=== PATIENT | female | born 1930 | race Caucasian/White ===

== ENCOUNTER 2017-06-25 19:13 | Emergency (ER) | payer OTHER, BC ==
[2017-06-25 19:29] VITALS: PULSE 80; TEMP 98.8; O2SAT 93
[2017-06-25] MEDS ORDERED: PHENAZOPYRIDINE HCL 200 MG TAB PO ONE (19:44)
--- NOTE | 2017-06-25 21:08 | EDPHY ---
H & P Time Seen by Provider: 06/25/17 20:19 HPI/ROS: CHIEF COMPLAINT: Urinary tract infection HISTORY OF PRESENT ILLNESS: 86-year-old female presents to the emergency department with urinary tract infection. The patient has symptoms of urinary urgency, dysuria. Symptoms began this morning. She has a history of frequent urinary tract infections. She has been seen by [facility] for this in the past. She thinks that she had a urinary tract infection earlier this year. She has some lower back discomfort which she attributed from lifting something heavy a few days prior. She denies any nausea or vomiting. She has some lower abdominal pain with more bloating sensation which is common for her when she develops a bladder infection. No fevers or chills. No nausea or vomiting. No chest pain or difficulty breathing. REVIEW OF SYSTEMS: Constitutional: No fever, no chills. Eyes: No double or blurry vision. ENT: No sore throat. Respiratory: No cough, no shortness of breath. Cardiac: No chest pain. Gastrointestinal: No abdominal pain, vomiting or diarrhea. Genitourinary: As above Musculoskeletal: No neck or back pain. Skin: No rashes. Neurological: No headache. Past Medical/Surgical History: Hypertension, GERD Social History: for 49 years Smoking Status: Never smoked Physical Exam: General Appearance: Alert, no distress. Afebrile. No apparent distress. Eyes: Pupils equal and round. Extraocular motions are all intact. ENT: Mouth: Mucous membranes moist. Respiratory: No wheezing, rhonchi, or rales, lungs are clear to auscultation. Cardiovascular: Regular rate and rhythm. Gastrointestinal: Abdomen is soft and nontender, no masses, no rebound or guarding, bowel sounds normal. No CVA tenderness bilaterally. Neurological: Alert and oriented x 3, cranial nerves II through XII grossly intact Skin: Warm and dry, no rashes. Musculoskeletal: Nontender to palpate along the cervical, thoracic or lumbar spine. Neck is supple. Extremities: Full range of motion and no peripheral edema. Psychiatric: Patient is oriented X 3, there is no agitation. Constitutional: Initial Vital Signs Temperature (C) 37.1 C 06/25/17 19:24 Heart Rate 80 06/25/17 19:24 Respiratory Rate 18 06/25/17 19:24 Blood Pressure 177/84 H 06/25/17 19:24 O2 Sat (%) 93 03/02/18 19:24 O2 Delivery Mode Room Air Allergies/Adverse Reactions: No Known Allergies Allergy (Unverified 06/25/17 19:29) Home Medications: Medication Instructions Recorded Cephalexin [Keflex] 500 mg PO TID #21 cap 06/25/17 Herbals/Supplements -Info Only 1 ea PO DAILY 06/25/17 Multivitamins [Multivitamin (*)] 06/25/17 Naproxen 375 mg PO 06/25/17 Medical Decision Making ED Course/Re-evaluation: 86-year-old female presents to the emergency department with urinary tract infection. Patient was able to provide a urine specimen which revealed large amount of white blood cells and some red blood cells. Urine cultures pending. The case was discussed with Dr. Inocencio Palencia, secondary supervising physician , who did not directly evaluate the patient but agrees with treatment and plan. Patient will be treated with Keflex as she has had this in the past. Reviewing her past urine cultures which have been mostly Klebsiella, this has been pansensitive with the exception of ampicillin. She will be treated with Keflex. She was encouraged to have close follow-up with her urologist. She should return sooner if she develops fever, vomiting, back pain, or if she seems worse in any way. She was comfortable with this plan. Differential Diagnosis: Including but not limited to urinary tract infection, pyelonephritis, kidney stone - Data Points Laboratory Results: 06/25/17 19:30 Urine Color YELLOW Urine Appearance HAZY Urine pH 5.0 (5.0-7.5) Ur Specific [place] 1.027 (1.002-1.030) Urine Protein NEGATIVE (NEGATIVE) Urine Ketones NEGATIVE (NEGATIVE) Urine Blood NEGATIVE (NEGATIVE) Urine Nitrate NEGATIVE (NEGATIVE) Urine Bilirubin NEGATIVE (NEGATIVE) Urine Urobilinogen NEGATIVE EU EU (0.2-1.0) Ur Leukocyte Esterase 3+ H (NEGATIVE) Urine RBC 5-10 /hpf H /hpf (0-3) Urine WBC 50-182 /hpf H /hpf (0-3) Ur Epithelial Cells TRACE /lpf /lpf (NONE-1+) Urine Bacteria TRACE /hpf H /hpf (NONE SEEN) Urine Mucus 1+ /lpf /lpf (NONE-1+) Urine Glucose NEGATIVE (NEGATIVE) Medications Given: Discontinued Medications Cephalexin (Keflex 500 Mg Prepack#4) 1 btl TAKEHOME EDNOW ONE PRN Reason: Protocol Stop: 06/25/17 21:10 Last Admin: 06/25/17 21:20 Dose: 1 btl Phenazopyridine HCl (Pyridium) 200 mg PO EDNOW ONE Stop: 06/25/17 19:45 Last Admin: 06/25/17 19:57 Dose: 200 mg Departure - Departure Disposition: Home, Routine, Self-Care Clinical Impression: Urinary tract infection Qualifiers: Urinary tract infection type: acute cystitis Hematuria presence: without hematuria Qualified Code(s): N30.00 - Acute cystitis without hematuria Condition: Good Instructions: Cephalexin (By mouth), Urinary Tract Infection in Women (ED) Additional Instructions: Keflex as directed for one week. Call [phone] for the results of your urine culture in 48 hours. Follow up with Urology next week to recheck. Referrals: Molly Vaughan, PAC [Primary Care Provider] - As per Instructions Prescriptions: Cephalexin [Keflex] 500 mg PO TID #21 cap
[2017-06-25] MEDS ORDERED: CEPHALEXIN 500MG PREPACK#4 BTL TAKEHOME ONE (21:09)
[2017-06-25 21:34] VITALS: BP 164/71; RESP 16
== END 2017-06-25 21:33 | disposition home or self-care (01) ==
DX: N30.00 Acute cystitis without hematuria (principal); B96.20 Unspecified Escherichia coli [E. coli] as the cause of diseases classified elsewhere; I10 Essential (primary) hypertension

== ENCOUNTER 2018-04-27 19:19 | Emergency (ER) | payer OTHER, BC ==
[2018-04-27 19:27] VITALS: BP 126/94
--- NOTE | 2018-04-27 19:36 | EDPHY ---
H & P Stated Complaint: urinary frequency/urgency x1 day Time Seen by Provider: 04/27/18 19:36 HPI/ROS: HPI: This is an 87-year-old female who presents with Chief Complaint: urinary frequency/urgency x1 day Location: Quality: Frequency, urgency Duration: 1 day Signs and Symptoms: no fever, no nausea, no vomiting, no hematemesis, no blood in stool, no abdominal bloating, no diarrhea, no back pain, no burning with urination, no vaginal bleeding/discharge, no indigestion, no chest pain, no shortness of breath Timing: Acute onset Severity: [id number] Context: Patient presents with sudden onset of urinary frequency and urgency starting yesterday. Patient denies burning with urination, fevers, back pain, nausea, vomiting. Patient reports that every time she comes to [place] to visit she gets a urinary tract infection. Last visit was in June of this year. She reports that the antibiotic at that time"grant did write out." She is eating and drinking normally. Patient denies any abdominal pain. She is eating and drinking normally. Postmenopausal. Modifying Factors: None Comment: ROS: A comprehensive 10 system review of systems is otherwise negative aside from elements mentioned in the history of present illness. MEDICAL/SURGICAL/SOCIAL HISTORY: Medical history: GERD. Does not take any regular medications. Surgical history: Denies Social history: Retired nurse, , nonsmoker, Family history noncontributory. CONSTITUTIONAL: Extremely polite and cooperative nontoxic-appearing elderly white female, awake and alert, no obvious distress HEENT: Atraumatic and normocephalic, PERRL, EOMI. Nares patent; no rhinorrhea; no nasal mucosal edema. Tympanic membranes clear. Oropharynx clear, no exudate and moist pink mucosa. Airway patent. No lymphadenopathy. No meningismus. Cardiovascular: Normal S1/S2, regular rate, regular rhythm, without murmur rub or gallop. PULMONARY/CHEST: Symmetrical and nontender. Clear to auscultation bilaterally. Good air movement. No accessory muscle usage. ABDOMEN: Soft, nondistended, nontender, no rebound, no guarding, no peritoneal signs, no masses or organomegaly. No CVAT. EXTREMITIES: 2/2 pulses, strength 5/5, no deformities, no clubbing, no cyanosis or edema. NEUROLOGICAL: no focal neuro deficits. GCS 15. SKIN: Warm and dry, no erythema. no rash. Good capillary refill. Source: Patient, Old records Exam Limitations: No limitations - Personal History Current Tetanus/Diphtheria Vaccine: No - Medical/Surgical History Hx Asthma: No Hx Chronic Respiratory Disease: No Hx Diabetes: No Hx Cardiac Disease: No Hx Renal Disease: No Hx Cirrhosis: No Hx Alcoholism: No Hx HIV/AIDS: No Hx Splenectomy or Spleen Trauma: No Other PMH: denies - Social History Smoking Status: Never smoked Constitutional: Initial Vital Signs Temperature (C) 36.6 C 04/27/18 19:23 Heart Rate 94 04/27/18 19:23 Respiratory Rate 16 04/27/18 19:23 Blood Pressure 126/94 H 04/27/18 19:23 O2 Sat (%) 94 04/27/18 19:23 O2 Delivery Mode Room Air Allergies/Adverse Reactions: No Known Allergies Allergy (Verified 04/27/18 19:26) Home Medications: Medication Instructions Recorded Herbals/Supplements -Info Only 1 ea PO DAILY 06/25/17 Multivitamins [Multivitamin (*)] 06/25/17 Cephalexin [Keflex (*)] 500 mg PO TID #21 cap 04/27/18 Medical Decision Making ED Course/Re-evaluation: Vital signs reviewed and stable upon arrival. No systemic signs indicating pyelonephritis. Urinalysis ordered Reviewed old urine culture from June 2017 and it was positive for E coli and pansensitive. Urinalysis shows infection; sent for culture; given Pyridium and Keflex prepack as well as prescription for x7 days. This patient was seen under the supervision of my secondary supervising physician. I evaluated care for this patient independently. Discussed this patient with Dr. Griffiths who did not see the patient. Differential Diagnosis: Differential diagnosis includes but is not limited to interstitial cystitis, acute cystitis, upper urinary tract infection, pyelonephritis, sepsis. - Data Points Laboratory Results: 04/27/18 19:50 Urine Color YELLOW Urine Appearance TURBID Urine pH 5.0 (5.0-7.5) Ur Specific [place] 1.020 (1.002-1.030) Urine Protein 1+ H (NEGATIVE) Urine Ketones TRACE H (NEGATIVE) Urine Blood NEGATIVE (NEGATIVE) Urine Nitrate NEGATIVE (NEGATIVE) Urine Bilirubin NEGATIVE (NEGATIVE) Urine Urobilinogen NEGATIVE EU EU (0.2-1.0) Ur Leukocyte Esterase 3+ H (NEGATIVE) Urine RBC 15-25 /hpf H /hpf (0-3) Urine WBC 50-182 /hpf H /hpf (0-3) Ur Epithelial Cells TRACE /lpf /lpf (NONE-1+) Urine Bacteria 1+ /hpf H /hpf (NONE SEEN) Urine Mucus TRACE /lpf /lpf (NONE-1+) Urine Glucose NEGATIVE (NEGATIVE) Departure - Departure Disposition: Home, Routine, Self-Care Clinical Impression: UTI (urinary tract infection) Qualifiers: Urinary tract infection type: acute cystitis Hematuria presence: without hematuria Qualified Code(s): N30.00 - Acute cystitis without hematuria Condition: Good Instructions: Urinary Tract Infection in Women (ED) Additional Instructions: Consume a minimum of 8-10 glasses of water or electrolyte fluid replacement drinks that include Gatorade, Powerade, Pedialyte. Take antibiotic as directed until complete. Do not skip a dose. Call [phone] for the results of your urine culture in 48 hr. Referrals: JENNIFER WATSON [Other] - As per Instructions Prescriptions: Cephalexin [Keflex (*)] 500 mg PO TID #21 cap
[2018-04-27] MEDS ORDERED: PHENAZOPYRIDINE HCL 200 MG TAB PO ONE (20:03)
[2018-04-27] MEDS ORDERED: CEPHALEXIN 500MG PREPACK#4 BTL TAKEHOME ONE (20:03)
== END 2018-04-27 20:20 | disposition home or self-care (01) ==
DX: N30.00 Acute cystitis without hematuria (principal); B96.20 Unspecified Escherichia coli [E. coli] as the cause of diseases classified elsewhere